=== PATIENT | male | born 1960 | race Caucasian/White ===

== ENCOUNTER 2025-01-18 06:20 | Day surgery (SDC) | payer BC ==
[2025-01-05 14:00] VITALS: BMI 27.3
[2025-01-18 09:16] VITALS: TEMP 98.2
[2025-01-18 10:04] VITALS: BP 130/77; PULSE 68; RESP 20
== END 2025-01-18 09:50 | disposition home or self-care (01) ==
LOC: JASU-ENDO 06:20
PROVIDERS: ATTEND Internal Medicine Gastroenterology
PROC: 0DJD8ZZ Inspection of Lower Intestinal Tract, Via Natural or Artificial Opening Endoscopic (ICD-10-PCS; principal; 2025-01-18 09:00)
DX: Z12.11 Encounter for screening for malignant neoplasm of colon (principal); K64.8 Other hemorrhoids; K57.30 Diverticulosis of large intestine without perforation or abscess without bleeding